=== PATIENT | female | born 1965 | race African-American/Black ===

== ENCOUNTER 2021-06-09 15:22 | Inpatient (IN) | payer OTHER ==
[2021-06-09] MEDS ORDERED: SODIUM CHLORIDE 0.9% 500 ML INFUS.BAG IV ONE (15:58)
[2021-06-09] MEDS ORDERED: ACETAMINOPHEN 1000 MG/100 ML BAG IVPB ONE (16:12)
[2021-06-09] MEDS ORDERED: VANCOMYCIN 1 GM in D5W (PRE-DOCKED) 1,000 MG/250 ML IVPB ONE (16:30)
[2021-06-09] MEDS ORDERED: CEFEPIME HCL/D5W 1 GM/50 ML BAG IVPB ONE (16:30)
[2021-06-09] MEDS ORDERED: ACETAMINOPHEN INJECTION 100 ML IVPB ONE (16:31)
[2021-06-09] MEDS ORDERED: VANCOMYCIN 500 MG VIAL (RESTRICTED TO ID ONLY) ONE (16:56)
[2021-06-09] MEDS ORDERED: CEFEPIME 1 GM/100 ML BAG IVPB ONE (16:56)
[2021-06-09 17:34] LABS: BASO % 0.2 % (0-2.0); EOS % 0.1 % (0-4.5); HEMATOCRIT 28.9 % (32.4-45.2); HEMOGLOBIN 9.6 GM/dL (10.7-15.3); LYMPH % 8.2 % (8-40); MCH 31.1 pg (25.7-33.7); MCHC 33.4 g/dl (32.0-36.0); MEAN CELL VOLUME 93.3 fl (80-96); MEAN PLT VOLUME 8.2 fl (7.5-11.1); MONO % 7.1 % (3.8-10.2); NEUT % 84.4 % (42.8-82.8); PLATELET COUNT 216 10^3/uL (134-434); RDW 16.5 % (11.6-15.6); WHITE BLOOD COUNT 11.3 K/mm3 (4.0-10.0)
[2021-06-09 17:44] LABS: EPI CELLS >36 /uL (0-25.1); HYALINE CASTS 2 /uL (0-3.1); PH,URINE 7.5 (5.0-8.0); URINE APPEARANCE CLOUDY; URINE BACTERIA 4588 /uL (0-1359); URINE BILIRUBIN NEGATIVE (NEGATIVE); URINE COLOR YELLOW; URINE GLUCOSE (UA) NEGATIVE (NEGATIVE); URINE KETONE NEGATIVE (NEGATIVE); URINE LEUK ESTERASE TRACE (NEGATIVE); URINE NITRITE POSITIVE (NEGATIVE); URINE PROTEIN 1+ (NEGATIVE); URINE RBC 18 /uL (0-23.9); URINE UROBILINOGEN 0.2 mg/dL (0.2-1.0); URINE WBC 14 /uL (0-25.8)
[2021-06-09 17:58] LABS: CHLORIDE 103 mmol/L (98-107); PROTHROMBIN TIME (PATIENT) 13.9 SEC (9.7-13.0); SODIUM 138 mmol/L (136-145)
[2021-06-09 17:59] LABS: ACTIVATED PTT 30.8 SECONDS (25.2-36.5); INR 1.21 (0.83-1.09)
[2021-06-09 18:01] LABS: CALCIUM 8.7 mg/dL (8.5-10.1)
[2021-06-09 18:02] LABS: ALBUMIN 3.2 g/dl (3.4-5.0); ANION GAP 11 MMOL/L (8-16); BLOOD UREA NITROGEN 12.4 mg/dL (7-18); CO2 25 mmol/L (21-32); GLUCOSE,RANDOM 114 mg/dL (74-106)
[2021-06-09 18:04] LABS: CREATININE 1.5 mg/dL (0.55-1.3); SGOT/AST 20 U/L (15-37); SGPT/ALT 31 U/L (13-61)
[2021-06-09 18:06] LABS: BILIRUBIN,TOTAL 0.9 mg/dL (0.2-1); TOT PROT 7.1 g/dl (6.4-8.2)
[2021-06-09] MEDS ORDERED: SODIUM CHLORIDE 1,000 ML IV STA (18:06)
[2021-06-09 18:08] LABS: ALK PHOS 57 U/L (45-117)
[2021-06-09 18:12] LABS: LACTIC ACID 3.5 mmol/L (0.4-2.0)
[2021-06-09] MEDS ORDERED: POTASSIUM CHLORIDE TABS 20 MEQ TABLET.ER (FP) PO ONE ×2 (19:35→19:43)
[2021-06-09] MEDS ORDERED: MAGNESIUM SULF 50% (8.12 MEQ/2 ML-1 GM VIAL) IVPB ONE (19:36)
[2021-06-09] MEDS ORDERED: IBUPROFEN 600 MG TABLET (FP) PO ONE ×2 (19:37→19:43)
[2021-06-09] MEDS ORDERED: MAGNESIUM SULFATE IN WATER 2 GM/50 ML IVPB IVPB ONE (19:43)
[2021-06-09] MEDS ORDERED: APIXABAN 5 MG TABLET PO ONE (20:06)
[2021-06-09] MEDS ORDERED: APIXABAN 5 MG TABLET ONE (20:11)
[2021-06-10] MEDS: VANCOMYCIN 1,000 MG in DEXTROSE 5%-WATER - 250 ML IVPB SCH ×2 (04:13→19:52)
[2021-06-10] MEDS ORDERED: ACETAMINOPHEN 325 MG TABLET (FP) ONE (04:24)
[2021-06-10] MEDS: ACETAMINOPHEN 325 MG TABLET (FP) PO PRN (04:26)
[2021-06-10 06:36] LABS: ALBUMIN 2.8 g/dl (3.4-5.0); BLOOD UREA NITROGEN 16.4 mg/dL (7-18); CALCIUM 7.8 mg/dL (8.5-10.1)
[2021-06-10 06:39] LABS: CREATININE 1.5 mg/dL (0.55-1.3)
[2021-06-10 06:40] LABS: BILIRUBIN,TOTAL 1.1 mg/dL (0.2-1); TOT PROT 6.5 g/dl (6.4-8.2)
[2021-06-10 06:53] LABS: BASO % 0.4 % (0-2.0); EOS % 0.1 % (0-4.5); HEMATOCRIT 27.7 % (32.4-45.2); HEMOGLOBIN 9.1 GM/dL (10.7-15.3); LYMPH % 10.3 % (8-40); MCHC 32.9 g/dl (32.0-36.0); MEAN CELL VOLUME 94.3 fl (80-96); MEAN PLT VOLUME 8.4 fl (7.5-11.1); NEUT % 84.2 % (42.8-82.8); PLATELET COUNT 178 10^3/uL (134-434); RBC 2.94 M/mm3 (3.60-5.2); WHITE BLOOD COUNT 8.1 K/mm3 (4.0-10.0)
[2021-06-10] MEDS ORDERED: APIXABAN 5 MG TABLET ONE (09:23)
[2021-06-10] MEDS ORDERED: CEFEPIME 1 GM/100 ML BAG IVPB ONE (09:24)
[2021-06-10] MEDS: CEFEPIME 1 GM in DEXTROSE 5%-WATER - 1 GM/50 ML IVPB IVPB SCH ×2 (09:33→21:37)
[2021-06-10] MEDS: APIXABAN 5 MG TABLET PO SCH ×2 (09:33→21:36)
[2021-06-10] MEDS ORDERED: APIXABAN 5 MG TABLET PO SCH (10:00)
[2021-06-10] MEDS ORDERED: PNEUMOC 13-VAL CONJ-DIP CRM/PF 0.5 ML DISP.SYRIN IM ONE (11:56)
[2021-06-10] MEDS ORDERED: PNEUMOCOCCAL 23 VACCINE 0.5 ML VIAL IM ONE (13:00)
[2021-06-10] MEDS ORDERED: FLU VACC QS2021-22(6MOS UP)/PF 60 MCG/0.5 ML SYRINGE IM ONE (13:00)
[2021-06-10] MEDS: DEXTROSE 5%-0.45% SALINE 1,000 ML IV SCH ×2 (14:21)
[2021-06-10] MEDS ORDERED: DEXTROSE 5%-WATER - 50 ML IVPB ONE (21:29)
[2021-06-10] MEDS ORDERED: CEFEPIME HCL 1 GM VIAL (RESTRICTED TO ID) ONE (21:29)
[2021-06-11] MEDS: ACETAMINOPHEN 325 MG TABLET (FP) PO PRN (02:31)
[2021-06-11] MEDS: DEXTROSE 5%-0.45% SALINE 1,000 ML IV SCH (05:28)
[2021-06-11] MEDS: VANCOMYCIN 1,000 MG in DEXTROSE 5%-WATER - 250 ML IVPB SCH ×2 (05:28→17:42)
[2021-06-11 07:21] LABS: BASO % 0.3 % (0-2.0); EOS % 13.7 % (0-4.5); HEMATOCRIT 26.7 % (32.4-45.2); HEMOGLOBIN 8.9 GM/dL (10.7-15.3); LYMPH % 21.5 % (8-40); MCH 31.2 pg (25.7-33.7); MCHC 33.2 g/dl (32.0-36.0); MEAN CELL VOLUME 94.1 fl (80-96); MEAN PLT VOLUME 8.4 fl (7.5-11.1); NEUT % 57.5 % (42.8-82.8); PLATELET COUNT 192 10^3/uL (134-434); RBC 2.84 M/mm3 (3.60-5.2); RDW 16.4 % (11.6-15.6); WHITE BLOOD COUNT 7.4 K/mm3 (4.0-10.0)
[2021-06-11 07:40] LABS: ALBUMIN 2.5 g/dl (3.4-5.0); CALCIUM 8.1 mg/dL (8.5-10.1)
[2021-06-11 07:42] LABS: BLOOD UREA NITROGEN 14.9 mg/dL (7-18)
[2021-06-11 07:44] LABS: CREATININE 1.1 mg/dL (0.55-1.3)
[2021-06-11 07:45] LABS: BILIRUBIN,TOTAL 0.8 mg/dL (0.2-1); TOT PROT 6.2 g/dl (6.4-8.2)
[2021-06-11] MEDS ORDERED: CEFEPIME HCL 1 GM VIAL (RESTRICTED TO ID) ONE ×2 (09:10→22:06)
[2021-06-11] MEDS ORDERED: DEXTROSE 5%-WATER 100 ML IVPB ONE ×2 (09:10→22:07)
[2021-06-11] MEDS: CEFEPIME 1 GM in DEXTROSE 5%-WATER 1 GM/100 ML BAG IVPB SCH ×2 (10:05→22:18)
[2021-06-11] MEDS: APIXABAN 5 MG TABLET PO SCH ×2 (10:05→22:18)
[2021-06-12 07:32] LABS: BASO % 0.2 % (0-2.0); EOS % 18.9 % (0-4.5); HEMATOCRIT 27.5 % (32.4-45.2); LYMPH % 32.1 % (8-40); MCH 30.7 pg (25.7-33.7); MCHC 32.8 g/dl (32.0-36.0); MEAN CELL VOLUME 93.5 fl (80-96); MEAN PLT VOLUME 8.4 fl (7.5-11.1); MONO % 7.8 % (3.8-10.2); PLATELET COUNT 234 10^3/uL (134-434); RBC 2.94 M/mm3 (3.60-5.2); RDW 16.6 % (11.6-15.6); WHITE BLOOD COUNT 7.6 K/mm3 (4.0-10.0)
[2021-06-12 07:58] LABS: ALBUMIN 2.6 g/dl (3.4-5.0); BLOOD UREA NITROGEN 13.2 mg/dL (7-18); CALCIUM 8.1 mg/dL (8.5-10.1)
[2021-06-12 07:59] LABS: CREATININE 1.1 mg/dL (0.55-1.3)
[2021-06-12 08:01] LABS: BILIRUBIN,TOTAL 0.5 mg/dL (0.2-1); TOT PROT 6.5 g/dl (6.4-8.2)
[2021-06-12] MEDS ORDERED: CEFEPIME HCL 1 GM VIAL (RESTRICTED TO ID) ONE ×2 (09:14→21:24)
[2021-06-12] MEDS ORDERED: DEXTROSE 5%-WATER 100 ML IVPB ONE ×2 (09:15→21:25)
[2021-06-12] MEDS: APIXABAN 5 MG TABLET PO SCH ×2 (09:35→21:43)
[2021-06-12] MEDS: CEFEPIME 1 GM in DEXTROSE 5%-WATER 1 GM/100 ML BAG IVPB SCH ×2 (09:35→21:43)
[2021-06-13] MEDS ORDERED: CEFEPIME HCL 1 GM VIAL (RESTRICTED TO ID) ONE ×2 (09:08→22:00)
[2021-06-13] MEDS ORDERED: DEXTROSE 5%-WATER 100 ML IVPB ONE ×2 (09:09→22:00)
[2021-06-13] MEDS: APIXABAN 5 MG TABLET PO SCH ×2 (09:36→22:21)
[2021-06-13] MEDS: CEFEPIME 1 GM in DEXTROSE 5%-WATER 1 GM/100 ML BAG IVPB SCH ×2 (09:36→22:26)
[2021-06-13 22:49] LABS: N-TERMINAL BNP 666.9 pg/ml (5-125)
[2021-06-14] MEDS ORDERED: CEFEPIME HCL 1 GM VIAL (RESTRICTED TO ID) ONE ×2 (08:32→20:49)
[2021-06-14] MEDS ORDERED: DEXTROSE 5%-WATER 100 ML IVPB ONE ×2 (08:32→20:49)
[2021-06-14] MEDS: CEFEPIME 1 GM in DEXTROSE 5%-WATER 1 GM/100 ML BAG IVPB SCH ×2 (09:12→21:22)
[2021-06-14] MEDS: APIXABAN 5 MG TABLET PO SCH ×2 (09:12→21:22)
[2021-06-14 20:18] VITALS: BMI 55.5
[2021-06-15 08:34] LABS: BASO % 0.5 % (0-2.0); EOS % 10.8 % (0-4.5); HEMATOCRIT 27.4 % (32.4-45.2); LYMPH % 21.8 % (8-40); MCH 30.9 pg (25.7-33.7); MCHC 32.8 g/dl (32.0-36.0); MEAN CELL VOLUME 94.3 fl (80-96); MEAN PLT VOLUME 8.5 fl (7.5-11.1); NEUT % 58.9 % (42.8-82.8); PLATELET COUNT 332 10^3/uL (134-434); WHITE BLOOD COUNT 12.1 K/mm3 (4.0-10.0)
[2021-06-15 08:44] LABS: CALCIUM 8.9 mg/dL (8.5-10.1)
[2021-06-15 08:45] LABS: ALBUMIN 2.9 g/dl (3.4-5.0); BLOOD UREA NITROGEN 15.9 mg/dL (7-18)
[2021-06-15 08:47] LABS: CREATININE 1.1 mg/dL (0.55-1.3)
[2021-06-15 08:49] LABS: BILIRUBIN,TOTAL 0.4 mg/dL (0.2-1); TOT PROT 6.7 g/dl (6.4-8.2)
[2021-06-15] MEDS ORDERED: DEXTROSE 5%-WATER 100 ML IVPB ONE ×2 (10:26→21:25)
[2021-06-15] MEDS ORDERED: CEFEPIME HCL 1 GM VIAL (RESTRICTED TO ID) ONE ×2 (10:26→21:25)
[2021-06-15] MEDS: APIXABAN 5 MG TABLET PO SCH ×2 (11:41→21:52)
[2021-06-15] MEDS: CEFEPIME 1 GM in DEXTROSE 5%-WATER 1 GM/100 ML BAG IVPB SCH ×2 (11:41→21:53)
[2021-06-16] MEDS ORDERED: DEXTROSE 5%-WATER 100 ML IVPB ONE (08:10)
[2021-06-16] MEDS ORDERED: CEFEPIME HCL 1 GM VIAL (RESTRICTED TO ID) ONE (08:10)
[2021-06-16] MEDS: CEFEPIME 1 GM in DEXTROSE 5%-WATER 1 GM/100 ML BAG IVPB SCH (09:07)
[2021-06-16] MEDS: APIXABAN 5 MG TABLET PO SCH (09:08)
[2021-06-16 11:43] VITALS: BP 136/73; PULSE 84; TEMP 97.7
== END 2021-06-16 17:58 | disposition home or self-care (01) | DRG 720 ==
LOC: JER 15:22 → JERBED 18:08 → J4W 06-10 11:24
PROVIDERS: ADMIT Internal Medicine; ATTEND Internal Medicine
DX: A41.89 Other specified sepsis (principal); E78.5 Hyperlipidemia, unspecified; E66.01 Morbid (severe) obesity due to excess calories; I12.9 Hypertensive chronic kidney disease with stage 1 through stage 4 chronic kidney disease, or unspecified chronic kidney disease; N18.9 Chronic kidney disease, unspecified; I82.432 Acute embolism and thrombosis of left popliteal vein; Z68.41 Body mass index [BMI] 40.0-44.9, adult; I24.8 Other forms of acute ischemic heart disease; L03.116 Cellulitis of left lower limb; E87.6 Hypokalemia; R00.0 Tachycardia, unspecified; N39.0 Urinary tract infection, site not specified; R50.9 Fever, unspecified; D72.829 Elevated white blood cell count, unspecified; E87.2 Acidosis
CPT/HCPCS: 36415; 71045-TC-FY; 73590-TC-LT-FY; 80053; 80061; 81003; 82550; 82553; 83036; 83605; 83880; 84443; 84484; 85025; 85610; 85730; 86850; 86900; 86901; 87040; 87086; 90686; 90732; 93005; 93010; 93306-TC; 93971-TC; 99285-25; C9803-CS; G0008; G0009; U0003; U0005